=== PATIENT | male | born 1985 | race Caucasian/White ===

== ENCOUNTER 2019-01-18 00:09 | Emergency (ER) | payer MEDICAID, SELFPAY ==
[~2019-01-18] VITALS: Ht 170.2 cm; Wt 68.2 kg
[2019-01-18] MEDS ORDERED: NS 1,000 ML IV ONE (00:45)
--- NOTE | 2019-01-18 01:02 | REP ---
Clinical: Trauma . Comparison: None . Technique: PA and lateral. Findings: The mediastinum and cardiac silhouette are normal. The lung garcia are clear and without acute consolidation, effusion, or pneumothorax. The skeletal structures are intact and normal. Impression: 1. No acute cardiopulmonary process. Electronically Signed by Francis Rincon MD 01/18/2019 12:53 A
--- NOTE | 2019-01-18 01:03 | REPVR ---
EXAM: CT Head Without Contrast EXAM DATE/TIME: 01/18/2019 12:24 AM CLINICAL HISTORY: 33 years old, male; Injury or trauma; Fall; Additional info: Tr TECHNIQUE: Imaging protocol: Axial computed tomography images of the head/brain without contrast. Radiation optimization: All CT scans at this facility use at least one of these dose optimization techniques: automated exposure control; mA and/or kV adjustment per patient size (includes targeted exams where dose is matched to clinical indication); or iterative reconstruction. COMPARISON: No relevant prior studies available. FINDINGS: Brain: No CT evidence of acute intracranial hemorrhage or acute territorial infarction. No significant mass effect or midline shift. Basal cisterns patent. Ventricles: Normal in size and configuration. Bones/joints: No acute osseous abnormality. Sinuses: Grossly unremarkable. Mastoid air cells: Grossly unremarkable. Soft tissues: Grossly unremarkable. IMPRESSION: No CT evidence of acute intracranial pathology. Electronically signed by: Eduardo Bergman On 01/18/2019 01:03:02 AM
[2019-01-18 02:24] VITALS: BP 124/72
--- NOTE | 2019-01-18 07:16 | ECGEPIP ---
Stationary ECG Study [facility] - ED Test Date: 2019-01-18 Pat Name: ELLIOT YEPEZ Department: Room: - Gender: M Spin Instructor: : [id number] Requested By: CONNOR RODRIGUEZ Order Number: [id number] Reading MD: Silvestre Byers Measurements Intervals [place] Rate: 92 P: 78 MO: 138 QRS: 64 QRSD: 93 T: 66 QT: 328 QTc: 407 Interpretive Statements SINUS RHYTHM WITH SINUS ARRHYTHMIA NO PRIORS FOR COMPARISON Electronically Signed On 01-18-2019 7:16:29 EDT by Silvestre Byers
== END 2019-01-18 03:06 | disposition home or self-care (01) ==
LOC: M ED 00:09
DX: R29.6 Repeated falls (principal); Z72.89 Other problems related to lifestyle; S20.212A Contusion of left front wall of thorax, initial encounter; V49.60XA Unspecified car occupant injured in collision with unspecified motor vehicles in traffic accident, initial encounter; Y92.410 Unspecified street and highway as the place of occurrence of the external cause; F41.9 Anxiety disorder, unspecified; F17.200 Nicotine dependence, unspecified, uncomplicated